=== PATIENT | female | born 1945 | race Caucasian/White ===

== ENCOUNTER → 2017-05-23 | Outpatient (CLI) | payer BC ==
[2017-05-23 08:58] LABS: BILIRUBIN,URINE NEGATIVE (NEG); CLARITY,URINE CLEAR; COLOR,URINE YELLOW; GLUCOSE,URINE NEGATIVE (NEG); NITRITE,URINE NEGATIVE (NEG); PROTEIN,URINE NEGATIVE (NEG-TRACE); UROBILINOGEN,URINE 0.2 mg/dL (0.2 mg/dL)
[2017-05-23 09:09] LABS: BACTERIA,URINE MODERATE /HPF (0-FEW); RBC,URINE OCC /HPF (0-2); SQUAMOUS EPITHELIAL CELL,UR MANY /LPF; WBC,URINE 20-40 /HPF (0-4)
[2017-05-23 09:31] LABS: ADD MAN DIFF? NO
[2017-05-23 09:38] LABS: BASO # 0.1 x10^3/uL (0.0-0.2); BASO % 1 % (0-3); EOS # 0.5 x10^3/uL (0.0-0.7); EOS % 5 % (0-3); HEMOGLOBIN 14.9 g/dL (12.0-15.5); LYMPH # 2.3 x10^3/uL (1.0-4.8); LYMPH % 23 % (24-48); MEAN CORPUSCULAR HEMOGLOBIN 31 pg (25-35); MEAN CORPUSCULAR HGB CONC 34 g/dL (31-37); MEAN CORPUSCULAR VOLUME 93 fL (79-100); MONO # 0.7 x10^3/uL (0.0-1.1); MONO % 7 % (0-9); NEUT # 6.4 x10^3uL (1.8-7.7); NEUT % 64 % (31-73); PLATELET COUNT 305 x10^3/uL (140-400); RED BLOOD COUNT 4.74 x10^6/uL (3.50-5.40); RED CELL DISTRIBUTION WIDTH 13.4 % (11.5-14.5)
[2017-05-23 09:49] LABS: ALBUMIN 3.9 g/dL (3.4-5.0); ANION GAP 9 (6-14); BLOOD UREA NITROGEN 21 mg/dL (7-20); CALCIUM 8.9 mg/dL (8.5-10.1); CARBON DIOXIDE 26 mmol/L (21-32); CHLORIDE 103 mmol/L (98-107); GFR 54.7; GLUCOSE 138 mg/dL (70-99); POTASSIUM 4.1 mmol/L (3.5-5.1); SODIUM 138 mmol/L (136-145)
[2017-05-23 09:53] LABS: PARTIAL THROMBOPLASTIN TIME 29 SEC (24-38); PROTHROMBIN TIME PATIENT 12.7 SEC (11.7-14.0)
[2017-05-23 11:00] LABS: SEDIMENTATION RATE 33 (0-25)
[2017-05-24 00:12] LABS: MRSA BY PCR Negative (Negative)
== END | disposition home or self-care (01) ==
LOC: SURGPAT 13:57
DX: Z01.818 Encounter for other preprocedural examination (principal); I70.0 Atherosclerosis of aorta; I10 Essential (primary) hypertension
CPT/HCPCS: 36415; 71046; 80048; 81001; 82040; 85025; 85610; 85651; 85730; 87086; 87641; 93005

== ENCOUNTER 2017-06-06 07:51 | Inpatient (IN) | payer BC ==
[~2017-06-06 07:51] MED LIST: CELECOXIB 200 MG CAPSULE. PO; HYDROmorphone 2 MG/ML VIAL IV; LIDOCAINE 1% PF 2 ML VIAL. ID; ONDANSETRON PF 4 MG/2 ML VIAL. IV; PROCHLORPERAZINE 10 MG/2 ML VIAL. IV; fentaNYL PF VIAL 100 MCG/2 ML VIAL IV
[2017-06-06] MEDS: IV RINGERS,LACTATED 1000ML 1,000 ML IV (08:36)
[2017-06-06] MEDS: HYDROcodone/APAP 7.5/325MG 1 TAB TABLET PO ×3 (08:42→23:08)
[2017-06-06 09:19] LABS: PARTIAL THROMBOPLASTIN TIME 27 SEC (24-38)
[2017-06-06] MEDS ORDERED: diphenhydrAMINE 50 MG/ML VIAL IV (09:45)
[2017-06-06] MEDS ORDERED: MORPHINE SULFATE 2 MG/ML DISP.SYRIN. IV (09:45)
[2017-06-06] MEDS ORDERED: oxyCODONE/APAP 7.5/325 1 TAB TABLET PO (09:45)
[2017-06-06] MEDS ORDERED: traMADol 50 MG TABLET PO ×2 (09:45)
[2017-06-06] MEDS ORDERED: NON FORMULARY ITEM (Albuterol Sulfate (Proair Hfa Inhaler) 2 PUFF) INH (09:45)
[2017-06-06] MEDS ORDERED: ZOLPIDEM 5 MG TABLET. PO (09:45)
[2017-06-06] MEDS ORDERED: DEXTROSE 50% 25 GM / 50ML DISP.SYRIN. IV (09:45)
[2017-06-06] MEDS ORDERED: fentaNYL PF VIAL 100 MCG/2 ML VIAL IV ×2 (09:45)
[2017-06-06] MEDS ORDERED: 0.9 % SODIUM CHLORIDE 10 ML DISP.SYRIN. IV (09:45)
[2017-06-06] MEDS ORDERED: ACETAMINOPHEN 325 MG TABLET. PO (09:45)
[2017-06-06] MEDS ORDERED: PROCHLORPERAZINE 5 MG TABLET. PO (09:45)
[2017-06-06] MEDS ORDERED: oxyCODONE/APAP 5/325 1 TAB TABLET PO (09:45)
[2017-06-06] MEDS ORDERED: CALCIUM CARBONATE 500 MG TAB.CHEW PO (09:45)
[2017-06-06] MEDS ORDERED: MORPHINE SULFATE 4 MG/ML DISP.SYRIN. IV ×2 (09:45)
[2017-06-06] MEDS ORDERED: PROCHLORPERAZINE 10 MG/2 ML VIAL. IV (09:45)
[2017-06-06] MEDS ORDERED: METOCLOPRAMIDE HCL 10 MG/2 ML VIAL. IV (09:45)
[2017-06-06] MEDS ORDERED: MORPHINE SULFATE 10 MG/ML VIAL. IV (09:45)
[2017-06-06] MEDS ORDERED: DEXAMETHASONE SOD PHOS 20 MG/5 ML VIAL. (10:23)
[2017-06-06] MEDS ORDERED: PROPOFOL 20 ML IV (10:23)
[2017-06-06] MEDS ORDERED: ONDANSETRON PF 4 MG/2 ML VIAL. (10:23)
[2017-06-06] MEDS ORDERED: LIDOCAINE 2% PF Vial for OR 5 ML VIAL. ×2 (10:23→12:18)
[2017-06-06] MEDS ORDERED: ROCURONIUM 50 MG/5 ML VIAL. (10:27)
[2017-06-06] MEDS ORDERED: SEVOFLURANE 61 TO 120 MINUTES. IH (10:42)
[2017-06-06] MEDS ORDERED: ALBUTEROL SULFATE 2.5 MG/3 ML NEBU. NEB ×2 (10:45→11:00)
[2017-06-06] MEDS: TRANEXAMIC ACID 1,000 MG in IV NS 50ML -- 1ST BAG INJ (10:46)
[2017-06-06] MEDS: TV=100ml MORPHINE 5 MG, KETOROLAC 30 MG, ROPIVacaine 0.5% PF 60 ML, EPINEPH... INT ART (10:48)
[2017-06-06] MEDS ORDERED: fentaNYL PF VIAL 100 MCG/2 ML VIAL (10:49)
[2017-06-06] MEDS: TRIAMTERENE/HCTZ 37.5/25MG TABLET. PO (11:00)
[2017-06-06] MEDS ORDERED: NEOSTIGMINE METHYLSULFATE 5 MG/5 ML SYRINGE. (11:02)
[2017-06-06] MEDS ORDERED: GLYCOPYRROLATE 1 MG/5 ML VIAL. (11:02)
[2017-06-06] MEDS: TRANEXAMIC ACID 1,000 MG in IV NS 50ML -- 2ND BAG INJ (11:45)
[2017-06-06] MEDS: fentaNYL PF VIAL 100 MCG/2 ML VIAL IV ×2 (12:48→13:06)
[2017-06-06] MEDS: MORPHINE SULFATE 2 MG/ML DISP.SYRIN. IV ×2 (13:28→13:40)
[2017-06-06] MEDS: IV DEXTROSE 5 %-0.45 % NACL 1,000 ML IV ×2 (15:42→19:42)
[2017-06-06] MEDS: ceFAZolin SODIUM IV Push 1 GM VIAL. IVP ×2 (15:42→20:49)
[2017-06-06] MEDS: CHOLECALCIFEROL (VITAMIN D3) 1,000 UNIT TABLET PO (16:32)
[2017-06-06] MEDS: WARFARIN 7.5 MG TABLET. PO (16:34)
[2017-06-06] MEDS: FERROUS SULFATE 325 MG TABLET. PO (16:34)
[2017-06-06] MEDS: SENNOSIDES/DOCUSATE 8.6/50MG TABLET. PO (16:35)
[2017-06-06] MEDS: SIMVASTATIN 40 MG TABLET. PO (20:49)
[2017-06-06] MEDS: CELECOXIB 200 MG CAPSULE. PO (20:49)
[2017-06-06] MEDS: LOSARTAN POTASSIUM 50 MG TABLET. PO (20:51)
[2017-06-07] MEDS: ceFAZolin SODIUM IV Push 1 GM VIAL. IVP (02:46)
[2017-06-07 05:48] LABS: INR 1.2 (0.8-1.1); PROTHROMBIN TIME PATIENT 14.5 SEC (11.7-14.0)
[2017-06-07] MEDS ORDERED: MAGNESIUM HYDROXIDE 2,400 MG/30 ML ORAL.SUSP. PO (06:00)
[2017-06-07] MEDS: LEVOTHYROXINE 137 MCG TABLET PO (07:22)
[2017-06-07] MEDS: TRIAMTERENE/HCTZ 37.5/25MG TABLET. PO (09:08)
[2017-06-07] MEDS: FERROUS SULFATE 325 MG TABLET. PO ×2 (09:08→17:01)
[2017-06-07] MEDS: CHOLECALCIFEROL (VITAMIN D3) 1,000 UNIT TABLET PO (09:08)
[2017-06-07] MEDS: CELECOXIB 200 MG CAPSULE. PO ×2 (09:08→20:52)
[2017-06-07] MEDS: HYDROcodone/APAP 10/325 1 TAB TABLET PO (09:09)
[2017-06-07] MEDS: MULTIVITAMIN with MINERAL TABLET. PO (09:09)
[2017-06-07] MEDS: SENNOSIDES/DOCUSATE 8.6/50MG TABLET. PO (09:09)
[2017-06-07] MEDS ORDERED: BISACODYL 10 MG SUPP.RECT. PR (16:00)
[2017-06-07] MEDS: WARFARIN 5 MG TABLET. PO (17:01)
[2017-06-07] MEDS: diphenhydrAMINE HCL 25 MG CAPSULE PO (19:17)
[2017-06-07] MEDS: SIMVASTATIN 40 MG TABLET. PO (20:52)
[2017-06-07] MEDS: LOSARTAN POTASSIUM 50 MG TABLET. PO (20:52)
[2017-06-07] MEDS: HYDROcodone/APAP 7.5/325MG 1 TAB TABLET PO (20:53)
[2017-06-08] MEDS: LEVOTHYROXINE 137 MCG TABLET PO (05:52)
[2017-06-08] MEDS: diphenhydrAMINE HCL 25 MG CAPSULE PO (05:52)
[2017-06-08 05:56] LABS: HEMATOCRIT 32.5 % (36.0-47.0); HEMOGLOBIN 11.3 g/dL (12.0-15.5); MEAN CORPUSCULAR HGB CONC 35 g/dL (31-37)
[2017-06-08 06:16] LABS: INR 1.6 (0.8-1.1); PROTHROMBIN TIME PATIENT 18.1 SEC (11.7-14.0)
[2017-06-08] MEDS: CELECOXIB 200 MG CAPSULE. PO (08:02)
[2017-06-08] MEDS: FERROUS SULFATE 325 MG TABLET. PO (08:02)
[2017-06-08] MEDS: TRIAMTERENE/HCTZ 37.5/25MG TABLET. PO (08:02)
[2017-06-08] MEDS: SENNOSIDES/DOCUSATE 8.6/50MG TABLET. PO (08:03)
[2017-06-08] MEDS: MULTIVITAMIN with MINERAL TABLET. PO (08:03)
[2017-06-08] MEDS: CHOLECALCIFEROL (VITAMIN D3) 1,000 UNIT TABLET PO (08:03)
[2017-06-08] MEDS: WARFARIN 3 MG TABLET. PO (14:33)
== END 2017-06-08 15:20 | disposition home or self-care (01) | DRG 470 ==
LOC: OPSVCIP 07:51 → 4 SOUTHEST 06-07 10:42 → 4 NORTH 14:04
PROC: 0SRB0J9 Replacement of Left Hip Joint with Synthetic Substitute, Cemented, Open Approach (ICD-10-PCS; principal; 2017-06-06 09:30)
DX: M16.12 Unilateral primary osteoarthritis, left hip (principal); Z96.619 Presence of unspecified artificial shoulder joint
CPT/HCPCS: 36415; 72170; 85014; 85018; 85610; 85730; 86850; 86900; 86901; 88304; 88311; 97110-GP; 97116-GP; 97150-GP; 97165-GO; 97530-GP; 97535-GO; C1713; J0171; J0690; J1100; J1885; J2270; J2405; J2704; J2710; J2795; J3010; J3490; J7030; J7120; Q0163

== ENCOUNTER → 2019-01-31 | Outpatient (CLI) | payer BC ==
[2017-06-08 08:06] VITALS: BP 144/77
[~2019-01-31] MED LIST changes: +ACET600C3 PO; +ALBU2.5V8 INH; +B&C/1TAB2 PO; +CELE200C PO; -CELECOXIB 200 MG CAPSULE. PO; +CHOL10003 PO; -HYDROmorphone 2 MG/ML VIAL IV; +IRBE150T PO; +LEVO137T2 PO; +LEVO150T PO; -LIDOCAINE 1% PF 2 ML VIAL. ID; +MAGN296S9 PO; +MULT1TAB52 PO; -ONDANSETRON PF 4 MG/2 ML VIAL. IV; -PROCHLORPERAZINE 10 MG/2 ML VIAL. IV; +SIMV40TA3 PO; +TRIA1CAP3 PO; +UBID100C26 PO; +UBID50TA PO; +VITAMIN B PO; +WARF-78 PO; +[UNRECOGNIZED DRUG - OTHER] PO; -fentaNYL PF VIAL 100 MCG/2 ML VIAL IV
--- NOTE | 2019-01-31 13:59 | RAD ---
DATE: 01/31/2019 EXAM: MAMMO SILVIA SCREENING BILATERAL HISTORY: Asymptomatic screening mammogram COMPARISON: 03/28/2012, 04/17/2014, 03/11/2015 This study was interpreted with the benefit of Computerized Aided Detection (CAD). Breast Density: SCATTERED The breast parenchyma shows scattered fibroglandular densities. Breast parenchyma level B. FINDINGS: Bilateral CC and MLO views of the breasts were performed. Bilateral breast tomosynthesis was performed in CC and MLO projections. Right breast: There are no suspicious microcalcifications, masses or areas of architectural distortion. Left breast: There are no suspicious microcalcifications, masses or areas of architectural distortion. Findings are stable from prior mammogram. IMPRESSION: Negative bilateral mammogram. BI-RADS CATEGORY: 1 NEGATIVE RECOMMENDED FOLLOW-UP: 12M 12 MONTH FOLLOW-UP PQRS compliance statement: Patient information was entered into a reminder system with a target due date 02/01/2020 for the next mammogram. Mammography is a sensitive method for finding small breast cancers, but it does not detect them all and is not a substitute for careful clinical examination. A negative mammogram does not negate a clinically suspicious finding and should not result in delay in biopsying a clinically suspicious abnormality. "Our facility is accredited by the [employer] Mammography [employer]."
== END | disposition home or self-care (01) ==
LOC: MAMMO 08:53
PROVIDERS: ATTEND Nurse Practitioner Family
DX: Z12.31 Encounter for screening mammogram for malignant neoplasm of breast (principal); N64.89 Other specified disorders of breast
CPT/HCPCS: 77063; 77067

== ENCOUNTER → 2020-02-08 | Outpatient (CLI) | payer BC ==
[2017-06-08 08:06] VITALS: BP 144/77
[~2020-02-08] MED LIST changes: -LEVO137T2 PO; +LEVO137T44 PO; +MAGN296S68 PO; -MAGN296S9 PO; +MULT-445 PO; -MULT1TAB52 PO; +SIMV40TA18 PO; -SIMV40TA3 PO; -WARF-78 PO; +WARF5TAB2 PO
--- NOTE | 2020-02-08 12:46 | KCIC ---
Bilateral digital screening mammograms with 3-D tomosynthesis: Reason for examination: Routine screening. Comparison is made to previous studies dated dated back to 03/28/2012. Bilateral mammograms in CC and oblique projections were obtained with 2-D imaging and 3-D tomosynthesis imaging on a Siemens Inspiration unit and reviewed on the workstation. Interpretation was made with the benefit of CAD. The skin and nipples show no abnormalities. No abnormal axillary lymph nodes are seen. The breast parenchyma is heterogeneously dense. (Breast density: Category C.) There are no dominant masses, suspicious calcifications or architectural distortion. A few benign calcifications are again seen. Impression: No evidence of malignancy. Recommend routine screening. Your patient's mammogram demonstrates that she has dense breast tissue (breast density category C or D), which could hide abnormalities, and if she has other risk factors for breast cancer that have been identified, she might benefit from supplemental screening tests that may be suggested by you as her ordering physician. Dense breast tissue, in and of itself, is a relatively common condition. Therefore, this information is not provided to cause undue concern, but rather to raise your awareness and to promote discussion with your patient regarding the presence of other risk factors, in addition to dense breast tissue. Your patient's mammography results will be sent to her. BI-RAD Category 2: Benign. "Our facility is accredited by the [employer]." This patient's information has been entered into a reminder system for the patient to be notified with the results of her examination and a target date for the next mammogram. Electronically signed by: Breanna Briggs MD (02/08/2020 12:43 PM) [id number]
== END ==
LOC: KCIC MAMMO 08:17
PROVIDERS: ATTEND Nurse Practitioner Family
DX: Z12.31 Encounter for screening mammogram for malignant neoplasm of breast (principal); N64.89 Other specified disorders of breast
CPT/HCPCS: 77063; 77067

== ENCOUNTER → 2021-02-09 | Outpatient (CLI) | payer BC ==
[2017-06-08 08:06] VITALS: BP 144/77
--- NOTE | 2021-02-09 08:59 | KCIC ---
Bilateral digital screening mammograms with 3-D tomosynthesis: Reason for examination: Routine screening. Comparison is made to previous studies dated back to 04/17/2014. Bilateral mammograms in CC and oblique projections were obtained with 2-D imaging and 3-D tomosynthes is imaging on a Siemens Inspiration unit and reviewed on the workstation. Interpretation was made wit h the benefit of CAD. The skin and nipples show no abnormalities. No abnormal axillary lymph nodes are seen. The breast par enchyma is heterogeneously dense. (Breast density: Category C.) There are no dominant masses, suspici ous calcifications or architectural distortion. A few benign calcifications are again seen. Impression: No evidence of malignancy. Recommend routine screening. Your patient's mammogram demonstrates that she has dense breast tissue (breast density category C or D), which could hide abnormalities, and if she has other risk factors for breast cancer that have bee n identified, she might benefit from supplemental screening tests that may be suggested by you as her ordering physician. Dense breast tissue, in and of itself, is a relatively common condition. Therefo re, this information is not provided to cause undue concern, but rather to raise your awareness and t o promote discussion with your patient regarding the presence of other risk factors, in addition to d ense breast tissue. Your patient's mammography results will be sent to her. BI-RAD Category 2: Benign. "Our facility is accredited by the [employer]ammography [employer]." This patient's information has been entered into a reminder system for the patient to be notified wit h the results of her examination and a target date for the next mammogram. Electronically signed by: Breanna Briggs MD (02/09/2021 8:57 AM) [id number]
== END ==
LOC: KCIC MAMMO 07:53
PROVIDERS: ATTEND Nurse Practitioner Family
DX: Z12.31 Encounter for screening mammogram for malignant neoplasm of breast (principal)
CPT/HCPCS: 77063; 77067

== ENCOUNTER → 2021-08-05 | Outpatient (CLI) | payer BC ==
[2017-06-08 08:06] VITALS: BP 144/77
--- NOTE | 2021-08-05 10:49 | RAD ---
DIAGNOSTIC BILATERAL BREAST MAMMOGRAM AND RIGHT BREAST ULTRASOUND TECHNIQUE: Bilateral 3-D and 2-D mammogram is routine CC and MLO projection. Grayscale and color dopp ler ultrasound of the area of concern in the right upper breast. INDICATION: Right breast palpable nodule. COMPARISON: 02/09/2021, 02/08/2020, 01/31/2019 FINDINGS: Breast Density: Category C: The breast tissue is heterogeneously dense, which could obscure detection of small masses. A palpable marker is present at the right upper inner breast. No suspicious masses, calcifications or architectural distortion. Ultrasound of the area of concern in the right breast 1:00 position 14 cm from the nipple demonstrate s a wider than tall ovoid circumscribed mass measuring 1.9 x 0.7 x 1.7 cm demonstrating echogenicity similar to adjacent subcutaneous fat. IMPRESSION: 1. No imaging evidence of malignancy. Palpable abnormality corresponds to benign subcutaneous lipoma . ASSESSMENT: BI-RADS 2: Benign. RECOMMENDATION: Routine annual screening mammogram. Your patient's mammogram demonstrates that she has dense breast tissue (breast density category C or D), which could hide abnormalities, and if she has other risk factors for breast cancer that have bee n identified, she might benefit from supplemental screening tests that may be suggested by you as her ordering physician. Dense breast tissue, in and of itself, is a relatively common condition. Therefo re, this information is not provided to cause undue concern, but rather to raise your awareness and t o promote discussion with your patient regarding the presence of other risk factors, in addition to d ense breast tissue. The facility will notify the patient of the results via mail. Patient information will be entered int o the mammography reminder system with a target recall date for the next mammogram. A reminder letter will be generated by the facility. Electronically signed by: Yaw Rodriguez MD (08/05/2021 10:47 AM) [id number]
== END ==
LOC: MAMMO 09:15
PROVIDERS: ATTEND Nurse Practitioner Family
DX: N63.12 Unspecified lump in the right breast, upper inner quadrant (principal)
CPT/HCPCS: 76641; 77066; G0279; 77062